=== PATIENT | female | born 1990 | race Caucasian/White ===

== ENCOUNTER → 2023-07-14 14:09 | Outpatient (REF) | payer OTHER, SELFPAY | LOC: RCS 14:09 | PROVIDERS: ATTENDING PHYSICIAN Internal Medicine Cardiovascular Disease | DX: R00.0 Tachycardia, unspecified (principal); R07.89 Other chest pain; R00.2 Palpitations | CPT/HCPCS: 93017 ==

== ENCOUNTER → 2023-07-19 08:09 | Outpatient (REF) | payer OTHER, SELFPAY | LOC: DHCBC HW 08:09 | PROVIDERS: ATTENDING PHYSICIAN Internal Medicine Cardiovascular Disease; FAMILY PHYSICIAN Nurse Practitioner Adult Health | DX: R07.89 Other chest pain (principal); R00.2 Palpitations; R00.0 Tachycardia, unspecified | CPT/HCPCS: 93306 ==

== ENCOUNTER → 2023-07-22 09:28 | Outpatient (REF) | payer OTHER, SELFPAY | LOC: RCS 09:28 | PROVIDERS: ATTENDING PHYSICIAN Internal Medicine Cardiovascular Disease; FAMILY PHYSICIAN Nurse Practitioner Adult Health | DX: R00.0 Tachycardia, unspecified (principal); R00.2 Palpitations | CPT/HCPCS: 93225; 93226 ==

== ENCOUNTER → 2023-12-16 14:38 | Outpatient (REF) | payer OTHER, SELFPAY | LOC: HWRAD 14:38 | PROVIDERS: ATTENDING PHYSICIAN Surgery; FAMILY PHYSICIAN Nurse Practitioner Adult Health | DX: R59.0 Localized enlarged lymph nodes (principal) | CPT/HCPCS: 74177; Q9967 ==

== ENCOUNTER → 2023-12-31 10:01 | Outpatient (REF) | payer OTHER, SELFPAY | LOC: RAD 10:01 | PROVIDERS: ATTENDING PHYSICIAN Family Medicine; FAMILY PHYSICIAN Nurse Practitioner Adult Health | DX: N92.6 Irregular menstruation, unspecified (principal); E04.1 Nontoxic single thyroid nodule | CPT/HCPCS: 76536; 76830; 76856 ==

== ENCOUNTER 2024-01-28 06:07 | Day surgery (SDC) | payer OTHER, SELFPAY ==
[2024-01-28] VITALS (10 sets, daily range): BP systolic 98–130; BP diastolic 61–88; BMI 33.7
[2024-01-28] MEDS: NORMOSOL-R/PLASMALYTE-A 1000 IV (06:58)
[2024-01-28 07:01] LABS: HCG, Urine Qualitative Screen Negative
[2024-01-28] MEDS: ZOFRAN 4 MG IV (08:54)
[2024-01-28] MEDS: DILAUDID 0.25 MG IV (09:21)
== END 2024-01-28 11:30 | disposition home or self-care (01) ==
LOC: SDS 06:07
PROVIDERS: ATTENDING PHYSICIAN Obstetrics & Gynecology Gynecology
DX: N84.0 Polyp of corpus uteri (principal); N85.8 Other specified noninflammatory disorders of uterus; N93.9 Abnormal uterine and vaginal bleeding, unspecified
CPT/HCPCS: 58558; 88305; 81025

== ENCOUNTER → 2024-03-24 16:05 | Outpatient (REF) | payer OTHER, SELFPAY | LOC: MRI 3T 16:05 | PROVIDERS: ATTENDING PHYSICIAN Psychiatry & Neurology Neurology; FAMILY PHYSICIAN Nurse Practitioner Adult Health | DX: G43.909 Migraine, unspecified, not intractable, without status migrainosus (principal) | CPT/HCPCS: 70551 ==

== ENCOUNTER → 2024-05-11 13:48 | Outpatient (REF) | payer OTHER, SELFPAY | LOC: HWRAD 13:48 | PROVIDERS: ATTENDING PHYSICIAN Psychiatry & Neurology Neurology; FAMILY PHYSICIAN Nurse Practitioner Adult Health | DX: M79.601 Pain in right arm (principal); M54.50 Low back pain, unspecified | CPT/HCPCS: 72050; 72110; 72170 ==

== ENCOUNTER 2024-06-02 06:48 | Day surgery (SDC) | payer OTHER, SELFPAY ==
[2024-06-02] VITALS (11 sets, daily range): BP systolic 105–141; BP diastolic 67–90; BMI 33.5
--- NOTE | 2024-06-02 08:14 | HP.FOC2 ---
Focused History & Physical
Chief Complaint
HPI:
Chief Complaint: Mesenteric lymphadenopathy
HPI / Indication for Planned Procedure: Patient is a 33-year-old female with a past surgical history predominantly related to the management of rather severe endometriosis. She is undergoing ovarian cystectomy, endometrioma removal, RAL excision
endometriosis, bilateral ureterolysis, cystoscopy and sigmoid colectomy. Incidental finding on previous CT imaging was a central mesenteric lymph node that has been slowly enlarging. On most recent imaging it is now up to about 2.2 cm. We have
discussed options for either continued radiographic surveillance or consideration of biopsy. Due to the location IR or endoscopic approaches are felt to be not feasible for needle biopsy. In addition given the patient's young age surveillance with
continued CT imaging is felt to be less than ideal due to radiation exposure so she presents today for diagnostic laparoscopy and laparoscopic lymph node biopsy.
Relevant Past Medical History: Other (Anxiety, syndrome of inappropriate tachycardia, endometriosis, endometrial hyperplasia, history of rheumatic fever)
Relevant Social History: Negative
Relevant Family History: Negative
Relevant Past Surgical History: Positive for (Lap ovarian cystectomy/removal endometriomas, RAL excision endometriosis, ureterolysis, cystoscopy and sigmoidectomy, hysteroscopy)
Review of Systems
Review of Pertinent Systems: All Systems Negative
Medication
See Medication form for detailed medications: Yes
Medication List (including Herbals & OTC):
Vitamin D3 2 gum PO DAILY 01/24/24
cetirizine 10 mg tablet (Zyrtec) 10 mg PO PRN PRN allergy symptoms 01/24/24
diphenhydramine HCl 25 mg capsule (Benadryl) 25 mg PO HS PRN allergy 01/24/24
famotidine 20 mg tablet (Pepcid) 20 mg PO HS 01/24/24
ibuprofen 400 mg tablet 400 mg PO Q6H PRN pain 01/24/24
multivitamin with minerals-folic acid 200 mcg chewable tablet (Multivitamin Gummies) 2 tab PO DAILY 01/24/24
simethicone 80 mg chewable tablet 80 mg PO HS bloating 01/24/24
clonazepam 0.5 mg tablet 0.25 - 0.5 mg PO PRN PRN anxiety 05/31/24
norethindrone acetate 5 mg tablet 10 mg PO DIRECTED 05/31/24
Medications Reviewed: Yes
Allergies and Reactions
Patient has Allergies: Yes
Noted Allergies and Reactions:
Allergy/AdvReac Type Severity Reaction Status Date / Time
naproxen [From Naprosyn] Allergy Rash Verified 05/31/24 15:31
oxycodone Allergy Rash Verified 05/31/24 15:31
Sulfa (Sulfonamide Allergy Rash Verified 05/31/24 15:31
Antibiotics)
yellow dye Allergy Itching Verified 05/31/24 15:31
alprazolam [From Xanax] AdvReac anxious Verified 05/31/24 15:34
Pertinent Physical Exam
All Other Systems: Negative
Head/Neck: Normal
Lungs: Normal
Heart: Normal
Abdomen: Other (Laparoscopic/robotic surgical scars)
Extremities: Normal
Neurological: Normal
Diagnosis / Assessment
33-year-old female with slowly enlarging mesenteric lymph node of uncertain etiology
Plan / Procedure
Diagnostic laparoscopy, laparoscopic assisted mesenteric lymph node biopsy/excision
Anesthesia/Sedation to be done by Anesthesia Provider: Yes
--- NOTE | 2024-06-02 08:17 | W.SUR.PREOP ---
Pre-Operative Surgical Note
-
I have examined this patient prior to the performance of the scheduled procedure.
The patient's condition is unchanged from the time of the current History and
Physical and the patient is able to undergo the scheduled procedure.
[2024-06-02] MEDS: TYLENOL 1000 MG PO (08:35)
[2024-06-02] MEDS: NORMOSOL-R/PLASMALYTE-A 1000 IV (08:48)
--- NOTE | 2024-06-02 11:17 | W.IMMPOSTOP ---
Addendum entered and electronically signed by Thaddeus Tavera MD 06/02/24 11:30:
#[id number]
Original Note:
Surgical Immed Post Op Note
-
Primary Surgeon: Thaddeus Tavera
Assisting Surgeon: Janet Cabrales PA-C
Pre-op Diagnosis: Mesenteric lymphadenopathy
Post-op Diagnosis: Mesenteric lymphadenopathy
Procedure Performed: Diagnostic laparoscopy, laparoscopic mesenteric lymph node biopsy (excisional)
Anesthesia Type: GETA +0.25% Marcaine
Specimen / Cultures: None
Estimated Blood Loss: 6 mL
Complications: None immediate
Operative Findings: 2cm to 3 cm solitary enlarged mesenteric lymph node at the root of the small bowel mesentery inferior to the transverse colon mesentery. Excised in its entirety and sent for routine pathology.
The assistance of Janet Cabrales PA-C was required due to the complexity of the procedure. During the procedure Janet Cabrales PA-C assisted with managing the laparoscope, exposure and closure of the incision sites.
[2024-06-02] MEDS: ULTRAM 50 MG PO (11:55)
[2024-06-02] MEDS: ZOFRAN 4 MG IV (12:15)
== END 2024-06-02 14:35 | disposition home or self-care (01) ==
LOC: SDS 06:48
PROVIDERS: ATTENDING PHYSICIAN Surgery; FAMILY PHYSICIAN Family Medicine
DX: R59.0 Localized enlarged lymph nodes (principal)
CPT/HCPCS: 38570; 88305; 88184; 88185; 88333; 88341; 88342; 88365

== ENCOUNTER 2024-06-13 15:01 | Outpatient (RCR) | payer OTHER, SELFPAY | END 2024-06-13 23:59 | disposition home or self-care (01) | LOC: RPT 15:01 | PROVIDERS: ATTENDING PHYSICIAN Psychiatry & Neurology Neurology; FAMILY PHYSICIAN Nurse Practitioner Adult Health | DX: M54.59 Other low back pain (principal); M54.2 Cervicalgia | CPT/HCPCS: 97110; 97163; 97535 ==

== ENCOUNTER 2024-07-10 17:04 | Outpatient (RCR) | payer OTHER, SELFPAY | END 2024-07-10 23:59 | disposition home or self-care (01) | LOC: RPT 17:04 | PROVIDERS: ATTENDING PHYSICIAN Psychiatry & Neurology Neurology; FAMILY PHYSICIAN Nurse Practitioner Adult Health | DX: M54.59 Other low back pain (principal); M54.2 Cervicalgia | CPT/HCPCS: 97110 ==

== ENCOUNTER 2024-07-24 16:54 | Outpatient (RCR) | payer OTHER, SELFPAY | END 2024-07-25 07:58 | disposition home or self-care (01) | LOC: RPT 16:54 | PROVIDERS: ATTENDING PHYSICIAN Psychiatry & Neurology Neurology; FAMILY PHYSICIAN Nurse Practitioner Adult Health | DX: M54.59 Other low back pain (principal); M54.2 Cervicalgia | CPT/HCPCS: 97110; 97535 ==

== ENCOUNTER → 2024-08-02 14:31 | Outpatient (REF) | payer OTHER, SELFPAY ==
[2024-08-02 15:38] LABS: HCG, Serum Qualitative Screen Negative
== END ==
LOC: REG 14:31
PROVIDERS: ATTENDING PHYSICIAN Radiology Diagnostic Radiology
DX: Z36.9 Encounter for antenatal screening, unspecified (principal)
CPT/HCPCS: 36415; 84703

== ENCOUNTER → 2024-08-03 08:38 | Outpatient (REF) | payer OTHER, SELFPAY | LOC: PET 08:38 | PROVIDERS: ATTENDING PHYSICIAN Internal Medicine Hematology & Oncology | DX: D47.Z2 Castleman disease (principal) | CPT/HCPCS: 78815; A9552 ==